=== PATIENT | male | born 1970 | race Caucasian/White ===

== ENCOUNTER 2018-10-29 15:33 | Emergency (ER) | payer SELFPAY ==
--- NOTE | 2018-10-29 16:06 | Emergency Department Report ---
Blank Doc - Documentation Documentation: This is a 47-year-old male that presents with generlized itching. Stated took PCN about 1 month ago and started to have itching and has not resolved yet. Exam: no angioedma present. no MING or SOB. This initial assessment/diagnostic orders/clinical plan/treatment(s) is/are s ubject to change based on patient's health status, clinical progression and re- assessment by fellow clinical providers in the ED. Further treatment and workup at subsequent clinical providers discretion. Patient/guardians urged not to elope from the ED as their condition may be serious if not clinically assessed and managed. Initial orders include: 1- Patient sent to [facility] for further evaluation and treatment
[2018-10-29 18:08] VITALS: BP 132/80
[2018-10-29] MEDS ORDERED: PEPCID PO ONE (18:42)
[2018-10-29] MEDS ORDERED: BENADRYL PO ONE (18:42)
[2018-10-29] MEDS ORDERED: DELTASONE PO ONE (18:42)
--- NOTE | 2018-10-29 19:01 | Emergency Department Report ---
ED General Adult HPI - General Chief complaint: Allergic Reaction Stated complaint: ITCHING ALL OVER Time Seen by Provider: 10/29/18 16:05 Source: patient Mode of arrival: Ambulatory Limitations: No Limitations - History of Present Illness Initial comments: pt is a 47-year-old male who states he penicillin 3 months ago intermittent rash since consisting of red papule urticaria no fever no weeping no shortness of breath no wheezing no chest pain no nausea vomiting states rash occurs from time to time this episode started 2 days ago as itchy patient denies asthma no history of bronchitis Onset/Timin -: days(s), month(s) Location: neck, back, abdomen, upper extremity, lower extremity Radiation: non-radiation Severity scale (0 -10): 3 Quality: burning, other (itching) Consistency: intermittent Improves with: none Worsens with: other (itch scratch cycle ) Associated Symptoms: denies other symptoms Treatments Prior to Arrival: none - Related Data Previous Rx's Medication Instructions Recorded Last Taken Type Famotidine [Pepcid] 20 mg PO BID 7 Days #14 tablet 10/29/18 Unknown Rx Triamcinolone Aceton 0.1% (Nf) 1 applic TP BID 14 Days #1 tube 10/29/18 Unknown Rx [Kenalog (NF)] diphenhydrAMINE [Benadryl CAP] 25 mg PO Q6HR PRN #30 capsule 10/29/18 Unknown Rx predniSONE [Deltasone] 40 mg PO QDAY 5 Days #10 tab 10/29/18 Unknown Rx ED Review of Systems ROS: Stated complaint: ITCHING ALL OVER Other details as noted in HPI Constitutional: denies: chills, fever Eyes: denies: eye pain, eye discharge, vision change ENT: denies: ear pain, throat pain Respiratory: denies: cough, shortness of breath, wheezing Cardiovascular: denies: chest pain, palpitations Endocrine: no symptoms reported Gastrointestinal: denies: abdominal pain, nausea, diarrhea Genitourinary: denies: urgency, dysuria Musculoskeletal: denies: back pain, joint swelling, arthralgia Skin: rash (red papules ) Neurological: denies: headache, weakness, paresthesias Psychiatric: as per HPI Hematological/Lymphatic: denies: easy bleeding, easy bruising ED Past Medical Hx - Past Medical History Previous Medical History?: No - Surgical History Past Surgical History?: Yes Additional Surgical History: Right leg surgery - Medications Home Medications: Home Medications Medication Instructions Recorded Confirmed Last Taken Type Famotidine [Pepcid] 20 mg PO BID 7 Days #14 tablet 10/29/18 Unknown Rx Triamcinolone Aceton 0.1% (Nf) 1 applic TP BID 14 Days #1 tube 10/29/18 Unknown Rx [Kenalog (NF)] diphenhydrAMINE [Benadryl CAP] 25 mg PO Q6HR PRN #30 capsule 10/29/18 Unknown Rx predniSONE [Deltasone] 40 mg PO QDAY 5 Days #10 tab 10/29/18 Unknown Rx ED Physical Exam - General Limitations: No Limitations General appearance: alert, in no apparent distress - Head Head exam: Present: atraumatic, normocephalic - Eye Eye exam: Present: normal appearance, PERRL, EOMI Pupils: Present: normal accommodation - ENT ENT exam: Present: normal orophraynx, mucous membranes moist, TM's normal bilaterally, normal external ear exam - Neck Neck exam: Present: normal inspection, full ROM. Absent: tenderness, meningismus, lymphadenopathy, thyromegaly - Respiratory Respiratory exam: Present: normal lung sounds bilaterally. Absent: respiratory distress, wheezes, stridor, chest wall tenderness - Cardiovascular Cardiovascular Exam: Present: regular rate, normal rhythm, normal heart sounds. Absent: systolic murmur, diastolic murmur, rubs, gallop - GI/Abdominal GI/Abdominal exam: Present: soft, normal bowel sounds. Absent: distended, tenderness, bruit, hernia - Rectal Rectal exam: Present: deferred - Extremities Exam Extremities exam: Present: normal inspection, full ROM, normal capillary refill. Absent: tenderness - Back Exam Back exam: Present: normal inspection, full ROM. Absent: tenderness, muscle spasm, rash noted - Neurological Exam Neurological exam: Present: alert, oriented X3, CN II-XII intact, normal gait - Psychiatric Psychiatric exam: Present: normal affect, normal mood - Skin Skin exam: Present: warm, dry, intact, normal color, rash, erythema, urticaria ED Course Vital Signs 10/29/18 15:40 Temperature 98.7 F Pulse Rate 84 Respiratory 16 Rate Blood Pressure 132/80 [Left] O2 Sat by Pulse 97 Oximetry ED Medical Decision Making - Medical Decision Making symptoms improved, plan , prednisone, benadryl, pepcid, avoid pcn products, triamcinolone oint follow up with pcp Dr. Watkins, in 2-3 days return to ed if symptoms worsen. Critical care attestation.: If time is entered above; I have spent that time in minutes in the direct care of this critically ill patient, excluding procedure time. ED Disposition Clinical Impression: Allergic reaction Qualifiers: Encounter type: initial encounter Qualified Code(s): T78.40XA - Allergy, unspecified, initial encounter Contact dermatitis Qualifiers: Contact dermatitis type: allergic Contact dermatitis trigger: other trigger Qualified Code(s): L23.89 - Allergic contact dermatitis due to other agents; L23.8 - Allergic contact dermatitis due to other agents Disposition: DC-01 TO HOME OR SELFCARE Is pt being admited?: No Does the pt Need Aspirin: No Condition: Stable Instructions: Urticaria (ED), Allergies (ED) Additional Instructions: follow up with pcp Dr. Watkins in 2-3 days Prescriptions: diphenhydrAMINE [Benadryl CAP] 25 mg PO Q6HR PRN #30 capsule PRN Reason: itching predniSONE [Deltasone] 40 mg PO QDAY 5 Days #10 tab Triamcinolone Aceton 0.1% (Nf) [Kenalog (NF)] 1 applic TP BID 14 Days #1 tube Famotidine [Pepcid] 20 mg PO BID 7 Days #14 tablet Referrals: [facility] [Outside] - 3-5 Days Forms: Work/School Release Form(ED) Time of Disposition: 19:08
== END 2018-10-29 19:17 | disposition home or self-care (01) ==
LOC: ED 15:33
DX: T78.40XA Allergy, unspecified, initial encounter (principal); L23.89 Allergic contact dermatitis due to other agents; Y92.89 Other specified places as the place of occurrence of the external cause
CPT/HCPCS: 99282; J7512